=== PATIENT | female | born 1985 | race Asian ===

== ENCOUNTER 2017-04-24 14:00 | Emergency (ER) | payer OTHER ==
--- NOTE | 2017-04-24 14:51 | RAD ---
INDICATION: Ankle pain after inversion injury COMPARISON: None. TECHNIQUE: 3 views of the right ankle were obtained. FINDINGS: There is a mild degree of asymmetric soft tissue thickening overlying the fibular malleolus relative to the tibial malleolus. The bones are normal alignment. Joint spaces appear maintained. No fracture is seen. IMPRESSION: MILD SOFT TISSUE SWELLING WITHOUT RADIOGRAPHICALLY APPARENT FRACTURE OR DISLOCATION. If the patient's symptoms persist, follow-up imaging is recommended.
--- NOTE | 2017-04-24 15:04 | UC ---
Lower Extremity/Ankle HPI - HPI Summary HPI Summary: 31 year old female presents with complains of right ankle pain after a syncopal episode. - History of Current Complaint Stated Complaint: ANKLE INJURY Time Seen by Provider: 04/24/17 14:02 Hx Last Menstrual Period: 04/06/16 - Allergies/Home Medications Allergies/Adverse Reactions: Allergies Allergy/AdvReac Type Severity Reaction Status Date / Time Penicillins Allergy Severe anaphalaxis Verified 04/24/17 14:02 Gluten Meal Allergy Unknown unk Verified 04/24/17 14:02 Amoxicillin Allergy Anaphylatic Verified 04/24/17 14:02 Nitrofurantoin Allergy Hives Verified 04/24/17 14:02 Topiramate [From Topamax] Allergy Itching Verified 04/24/17 14:02 PMH/Surg Hx/FS Hx/Imm Hx Other History Of: Negative For: HIV, Hepatitis B, Hepatitis C, Anticoagulant Therapy - Surgical History Surgical History: Yes Surgery Procedure, Year, and Place: URETHRAL DILATION 2011 - Family History Known Family History: Positive: Cardiac Disease, Hypertension - Social History Alcohol Use: Rare Substance Use Type: None Smoking Status (MU): Never Smoked Tobacco Review of Systems Constitutional: Fatigue Skin: Negative Eyes: Negative ENT: Negative Respiratory: Negative Cardiovascular: Palpitations Gastrointestinal: Negative Genitourinary: Negative Motor: Negative Neurovascular: Negative Musculoskeletal: Myalgia - right ankle pain, Other: - right ankle pain Neurological: Negative Psychological: Negative All Other Systems Reviewed And Are Negative: Yes Physical Exam Triage Information Reviewed: Yes Vital Signs: Initial Vital Signs Temp 37.7 C 04/24/17 14:02 Pulse 117 04/24/17 14:02 Resp 20 04/24/17 14:02 BP 129/99 04/24/17 14:02 Pulse Ox 100 04/24/17 14:02 Vital Signs Reviewed: Yes Eye Exam: Normal ENT Exam: Normal Dental Exam: Normal Neck exam: Normal Neck: Positive: 1 Respiratory Exam: Normal Cardiovascular Exam: Normal Cardiovascular: Positive: Tachycardia Abdominal Exam: Normal Musculoskeletal Exam: Normal Neurological Exam: Normal Psychological Exam: Normal Skin Exam: Normal Lower Extremity Course/Dx - Course Course Of Treatment: I AM VERY CONCERNED ABOUT HER SYNCOPAL EPISODE AND FAMILY HISTORY OF CARDIAC SO I WILL SEN DHER TO THE ER. - Differential Dx/Diagnosis Provider Diagnoses: tachycardia. right ankle sprain Discharge - Discharge Plan Condition: Guarded Disposition: TRANS HIGHER LVL OF CARE FAC Referrals: Monroe Luke MD [Primary Care Provider] -
[2017-04-24 15:21] VITALS: BP 122/80
== END 2017-04-24 15:25 | disposition short-term general hospital (02) ==
LOC: UCEAST 14:00
DX: R00.0 Tachycardia, unspecified (principal); S93.401A Sprain of unspecified ligament of right ankle, initial encounter; X58.XXXA Exposure to other specified factors, initial encounter; Y93.9 Activity, unspecified; Y92.9 Unspecified place or not applicable; Y99.9 Unspecified external cause status; Z82.41 Family history of sudden cardiac death
CPT/HCPCS: 93005; 99213; G0463

== ENCOUNTER → 2017-04-24 15:43 | Emergency (ER) | payer OTHER ==
[2017-04-24 16:31] LABS: Hematocrit 39 % (35-47); Hemoglobin 13.2 g/dl (12.0-16.0); Mean Corpuscular HGB Conc 34 g/dl (31-36); Mean Corpuscular Hemoglobin 31 pg (27-31); Mean Corpuscular Volume 93 fL (80-97); Mean Platelet Volume 8 um3 (7.4-10.4); Red Blood Count 4.22 10^6/ul (4.0-5.4); Red Cell Distribution Width 13 % (10.5-15); White Blood Count 7.3 10^3/ul (3.5-10.8)
[2017-04-24 16:43] LABS: Albumin 4.4 g/dL (3.2-5.2); BUN/Creatinine Ratio 37.2 (8-20); Calcium 9.4 mg/dL (8.6-10.3); EGFR African American 98.3 (>60); EGFR Non-African American 76.5 (>60); Globulin 2.4 g/dL (2-4); Potassium 3.7 mmol/L (3.5-5.0); Total Bilirubin 0.4 mg/dL (0.2-1.0); Total Protein 6.8 g/dL (6.4-8.9)
[2017-04-24 17:14] LABS: TSH (Thyroid Stimulating Horm) 1.33 mcIU/mL (0.34-5.60)
[2017-04-24 18:14] VITALS: BP 130/80
--- NOTE | 2017-04-24 18:29 | ED ---
Tera Melvin Auryana, scribed for Jeyson Gallardo MD on 04/24/17 at 1733 . Syncope/Near Syncope - HPI Summary HPI Summary: 31 year old female presents with EKG abnormalities s/p syncopal episode 3 days ago. Patient was seen at [facility] and was sent to the ER for further evaluation of EKG abnormalities and changes. She reports a history of syncopal episodes s/p sudden activity following position change exacerbated by lack of sleep- last episode was Wednesday and diagnosed with right ankle sprain. Patient states that she has had a full work up for her symptoms - electrocardiogram was negative, halter monitor revealed sinus tachycardia with PACs and PVCs, and further testing revealed ejection fraction >80. Patient has history of admission for similar complaints. PCP is aware of syncopal episodes. She denies any SOB, or any back pain. PMHx is significant for hypothyroid, sinus tachycardia, PTSD, and depression. - History Of Current Complaint Chief Complaint: EDExtremityLower Time Seen by Provider: 04/24/17 17:00 Hx Obtained From: Patient Onset/Duration: Sudden Onset Timing: Seconds Context: Unwitnessed Activity At Onset: Other - SEE HPI Associated Head Trauma: No Associated Signs And Symptoms: Pain - right ankle pain s/p episode on wednesday Related History: Similar Episode/Dx as - Allergies/Home Medications Allergies/Adverse Reactions: Allergies Allergy/AdvReac Type Severity Reaction Status Date / Time Penicillins Allergy Severe anaphalaxis Verified 04/24/17 14:02 Gluten Meal Allergy Unknown unk Verified 04/24/17 14:02 Amoxicillin Allergy Anaphylatic Verified 04/24/17 14:02 Nitrofurantoin Allergy Hives Verified 04/24/17 14:02 Topiramate [From Topamax] Allergy Itching Verified 04/24/17 14:02 PMH/Surg Hx/FS Hx/Imm Hx Endocrine/Hematology History: Reports: Hx Thyroid Disease - Was on Cytomel. She is being seen regularly for this. Denies: Hx Anticoagulant Therapy, Hx Diabetes Cardiovascular History: Reports: Hx Hypotension Denies: Hx Congestive Heart Failure, Hx Deep Vein Thrombosis, Hx Hypertension , Hx Myocardial Infarction, Hx Pacemaker/ICD Respiratory History: Denies: Hx Asthma, Hx Chronic Obstructive Pulmonary Disease (COPD), Hx Lung Cancer, Hx Pneumonia, Hx Pulmonary Embolism GI History: Denies: Hx Gall Bladder Disease, Hx Gastrointestinal Bleed, Hx Ulcer, Hx Urosepsis History: Reports: Hx Kidney Infection, Hx Renal Disease - history of hematuria., Other Problems/Disorders - FREQUENT KIDNEY INFECTIONS. Denies: Hx Kidney Stones Musculoskeletal History: Reports: Hx Orthopedic Injury - broken finger Right hand Sensory History: Reports: Hx Contacts or Glasses Opthamlomology History: Reports: Hx Contacts or Glasses Neurological History: Reports: Hx Seizures - "don't think I have a seizure disorder, just had one a long time ago" Denies: Hx Dementia, Hx Migraine, Hx Transient Ischemic Attacks (TIA) Psychiatric History: Reports: Hx Depression, Hx Post Traumatic Stress Disorder Denies: Hx Anxiety, Hx Schizophrenia, Hx Bipolar Disorder, Hx Substance Abuse - Surgical History Surgery Procedure, Year, and Place: URETHRAL DILATION 2011 Hx Anesthesia Reactions: No Infectious Disease History: No Infectious Disease History: Reports: Hx Tuberculosis - latent TB Denies: Hx Clostridium Difficile, Hx Hepatitis, Hx Human Immunodeficiency Virus (HIV), Traveled Outside the [place] in Last 30 Days - Family History Known Family History: Positive: Cardiac Disease, Hypertension - Social History Alcohol Use: Rare Substance Use Type: Reports: None Smoking Status (MU): Never Smoked Tobacco Review of Systems Constitutional: Negative Negative: Fever Eyes: Negative ENT: Negative Cardiovascular: Negative Respiratory: Negative Gastrointestinal: Negative Genitourinary: Negative Positive: Arthralgia - right ankle pain Skin: Negative Positive: Syncope Psychological: Normal All Other Systems Reviewed And Are Negative: Yes Physical Exam - Summary Physical Exam Summary: The patient is well-nourished in no acute distress and in no acute pain. The skin is warm and dry and skin color reflects adequate perfusion. Marked ecchymosis and tenderness over the lateral and medial aspect of the right ankle. HEENT: The head is normocephalic and atraumatic. The pupils are equal and reactive. The conjunctivae are clear and without drainage. Nares are patent and without drainage. Mouth reveals dry mucous membranes and the throat is without erythema and exudate. The external ears are intact. The ear canals are patent and without drainage. The tympanic membranes are intact. Neck is supple with full range of motion and non-tender. There are no carotid bruits. There is no neck vein distension. Respiratory: Chest is non-tender. Lungs are clear to auscultation and breath sounds are symmetrical and equal. Cardiovascular: Heart is tachycardic with regular rhythm. There is no murmur or rub auscultated. There is no peripheral edema and pulses are symmetrical and equal. Abdomen: The abdomen is soft and non-tender. There are normal bowel sounds heard in all four quadrants and there is no organomegaly palpated. Musculoskeletal: There is no back pain noted. Extremities are non-tender with full range of motion. There is good capillary refill. There is no peripheral edema or calf tenderness elicited. Neurological: Patient is alert and oriented to person, place and time. The patient has symmetrical motor strength in all four extremities. No focal motor weakness. Cranial nerves are grossly intact. Deep tendon reflexes are symmetrical and equal in all four extremities. Psychiatric: The patient is anxious but does not exhibit any depression. Triage Information Reviewed: Yes Vital Signs On Initial Exam: Initial Vitals Temp Pulse Resp BP Pulse Ox 99.6 F 95 16 129/88 99 04/24/17 16:10 04/24/17 16:10 04/24/17 16:10 04/24/17 16:10 04/24/17 16:10 Vital Signs Reviewed: Yes - Ona Coma Scale Coma Scale Total: 15 Diagnostics - Vital Signs Vital Signs Temp Pulse Resp BP Pulse Ox 04/24/17 16:10 99.6 F 95 16 129/88 99 - Laboratory Lab Results: Lab Results 04/24/17 04/24/17 Range/Units 15:09 15:09 WBC 7.3 (3.5-10.8) 10^3/ul RBC 4.22 (4.0-5.4) 10^6/ul Hgb 13.2 (12.0-16.0) g/dl Hct 39 (35-47) % MCV 93 (80-97) fL MCH 31 (27-31) pg MCHC 34 (31-36) g/dl RDW 13 (10.5-15) % Plt Count 277 (150-450) 10^3/ul MPV 8 (7.4-10.4) um3 Neut % (Auto) 69.8 (38-83) % Lymph % (Auto) 23.5 L (25-47) % Ashley % (Auto) 5.3 (1-9) % Eos % (Auto) 0.7 (0-6) % Baso % (Auto) 0.7 (0-2) % Absolute Neuts (auto) 5.1 (1.5-7.7) 10^3/ul Absolute Lymphs (auto) 1.7 (1.0-4.8) 10^3/ul Absolute Monos (auto) 0.4 (0-0.8) 10^3/ul Absolute Eos (auto) 0.1 (0-0.6) 10^3/ul Absolute Basos (auto) 0.1 (0-0.2) 10^3/ul Absolute Nucleated RBC 0.01 10^3/ul Nucleated RBC % 0.1 Sodium 137 (133-145) mmol/L Potassium 3.7 (3.5-5.0) mmol/L Chloride 103 (101-111) mmol/L Carbon Dioxide 27 (22-32) mmol/L Anion Gap 7 (2-11) mmol/L BUN 32 H (6-24) mg/dL Creatinine 0.86 (0.51-0.95) mg/dL Est GFR ( Amer) 98.3 (>60) Est GFR (Non-Af Amer) 76.5 (>60) BUN/Creatinine Ratio 37.2 H (8-20) Glucose 106 H (70-100) mg/dL Calcium 9.4 (8.6-10.3) mg/dL Magnesium 2.0 (1.9-2.7) mg/dL Total Bilirubin 0.40 (0.2-1.0) mg/dL AST 16 (13-39) U/L ALT 15 (7-52) U/L Alkaline Phosphatase 38 (34-104) U/L Total Creatine Kinase 145 (10-223) U/L Troponin I 0.00 (<0.04) ng/mL Total Protein 6.8 (6.4-8.9) g/dL Albumin 4.4 (3.2-5.2) g/dL Globulin 2.4 (2-4) g/dL Albumin/Globulin Ratio 1.8 (1-3) TSH Pending Result Diagrams: 04/24/17 15:09 04/24/17 15:09 Lab Statement: Any lab studies that have been ordered have been reviewed, and results considered in the medical decision making process. - EKG 16:38 EKG Interpretation: sinus tachycardia @ 100 bpm, no ST elevation EKG Comparison: No Significant Change - unchanged from EKG done at [facility] Re-Evaluation - Re-Evaluation First Eval Re-Evaluation Time: 17:46 - discussed plan of action Course/Dx Assessment/Plan: 31 year old female presents with EKG abnormalities s/p syncopal episode 3 days ago. Patient was seen at [facility] and was sent to the ER for further evaluation of EKG abnormalities and changes. She reports a history of syncopal episodes s/p sudden activity following position change- last episode was Wednesday and diagnosed with right ankle sprain. Patient states that she has had a full work up for her symptoms - electrocardiogram was negative, halter monitor revealed sinus tachycardia with PACs and PVCs, and further testing revealed ejection fraction >80. Patient has history of admission for similar complaints. PCP is aware of syncopal episodes. She denies any SOB, or any back pain. PMHx is significant for hypothyroid, sinus tachycardia, PTSD, and depression. Blood work shows BUN 32, BUN/Creatinine ratio 37.2, glucose 106, troponin 0.00, and TSH 1.33. LFT are WNL. EKG shows sinus tachycardia @ 100 bpm, no ST elevation, unchanged from EKG done at [facility]. On re-evaluation, plan of action and EKG was discussed with the patient. Patient will be discharged home with an ankle stirrup splint, crutches to use as needed, and follow up to Dr. Phillips (cardiology) and Dr. Singer (Orthopedics ). Patient agrees with discharge and plan. - Diagnoses Differential Diagnosis/HQI/PQRI: Positive: Dysrhythmia, Hypovolemia, Metabolic Reaction, Other - ankle sprain, Provider Diagnoses: Syncope, Dehydration, Right ankle sprain Discharge - Discharge Plan Condition: Stable Disposition: HOME Patient Education Materials: Dehydration (ED), Ankle Sprain (ED), Ankle Stirrup Splint (ED), Near Syncope (ED), Crutch Instructions (ED) Referrals: Monroe Luke MD [Primary Care Provider] - 2 Days Weston Singer MD [Medical Doctor] - 2 Days Dank Phillips DO [Medical Doctor] - 2 Days The documentation as recorded by the Tera gonzalez Auryana accurately reflects the service I personally performed and the decisions made by Paulina harrison Drew, MD.
== END | disposition home or self-care (01) ==
LOC: ED 15:43
DX: R55 Syncope and collapse (principal); E86.0 Dehydration; S93.401A Sprain of unspecified ligament of right ankle, initial encounter; E03.9 Hypothyroidism, unspecified; F43.10 Post-traumatic stress disorder, unspecified; F32.9 Major depressive disorder, single episode, unspecified; Z88.0 Allergy status to penicillin; X58.XXXA Exposure to other specified factors, initial encounter; Y92.9 Unspecified place or not applicable
CPT/HCPCS: 36415; 80053; 82550; 83735; 84443; 84484; 85025; 93005; 99283